=== PATIENT | female | born 1955 | race Caucasian/White ===

== ENCOUNTER → 2024-01-16 06:59 | Outpatient (REF) | payer MEDICARE, OTHER, SELFPAY ==
[2024-01-16 07:33] LABS: % Basophils 0.4 % (0-2); % Eosinophils 4.8 % (0-6); % Immature Granulocytes 0.3 % (0-0.5); % Lymphocytes 14.4 % (20.5-51.1); % Monocytes 4.8 % (1.7-9.3); % Neutrophils 75.3 % (42.2-75.2); Absolute Eosinophils 0.3 10^3/uL (0-0.7); Absolute Monocytes 0.3 10^3/uL (0.1-0.6); Absolute Neutrophils 5.1 10^3/uL (1.4-6.5); Hematocrit 37.8 % (37.0-47.0); Hemoglobin 12.4 g/dL (12.0-16.0); Mean Corp Hgb Conc. 32.8 g/dL (33.0-37.0); Mean Corpuscular Hgb 30.6 pg (27.0-31.0); Mean Corpuscular Volume 93.3 fL (81.0-99.0); Mean Platelet Volume 9.8 fL (7.4-10.4); Nucleated Red Blood Cells % 0 %; Platelet Count 237 10^3/uL (130-400); Red Blood Cell Count 4.05 10^6/uL (4.20-5.40); Red Cell Dist. Width 11.9 % (11.5-14.5); White Blood Cell Count 6.7 10^3/uL (4.8-10.8)
[2024-01-16 08:04] LABS: ALT (SGPT) 15 U/L (0-35); AST (SGOT) 22 U/L (14-36); Albumin 4.1 g/dl (3.5-5.0); Alkaline Phosphatase 91 U/L (38-126); Blood Urea Nitrogen 23 mg/dl (7-17); Calcium 9.7 mg/dl (8.4-10.2); Carbon Dioxide 31 mmol/L (22-30); Chloride 104 mmol/L (98-107); Glucose 90 mg/dl (70-99); HDL Cholesterol 63 mg/dl; LDL Cholesterol, Calculated 138 mg/dl; Potassium 4.2 mmol/L (3.5-5.1); Sodium 140 mmol/L (135-145); Total Bilirubin 0.5 mg/dl (0.2-1.3); Total Cholesterol 222 mg/dl (50-199); Total Protein 6.5 g/dl (6.3-8.2); Triglyceride 109 mg/dl (10-149); Very Low Density Lipoprotein 21 mg/dl (0-30); eGFR > 60.00
[2024-01-16 08:27] LABS: TSH Reflex To Free T4 1.24 uIU/ml (0.47-4.68)
== END ==
LOC: REG 06:59
PROVIDERS: ATTENDING PHYSICIAN Internal Medicine
DX: E66.9 Obesity, unspecified (principal); E78.2 Mixed hyperlipidemia; I10 Essential (primary) hypertension
CPT/HCPCS: 36415; 80053; 80061; 84443; 85025

== ENCOUNTER → 2024-04-16 15:17 | Outpatient (REF) | payer MEDICARE, OTHER, SELFPAY | LOC: WDC 15:17 | PROVIDERS: ATTENDING PHYSICIAN Internal Medicine | DX: Z12.31 Encounter for screening mammogram for malignant neoplasm of breast (principal) | CPT/HCPCS: 77063; 77067 ==

== ENCOUNTER → 2024-09-05 14:36 | Outpatient (REF) | payer MEDICARE, OTHER, SELFPAY | LOC: RAD 14:36 | PROVIDERS: ATTENDING PHYSICIAN Physician Assistant; FAMILY PHYSICIAN Internal Medicine | DX: I71.20 Thoracic aortic aneurysm, without rupture, unspecified (principal) | CPT/HCPCS: 71275; Q9967 ==

== ENCOUNTER 2024-09-16 09:18 | Inpatient (IN) | payer MEDICARE, OTHER, SELFPAY ==
[2024-08-29 10:43] LABS: Hemoglobin 11.5 g/dL (12.0-16.0); Mean Corp Hgb Conc. 32.9 g/dL (33.0-37.0); Mean Corpuscular Volume 88.2 fL (81.0-99.0); Mean Platelet Volume 9.9 fL (7.4-10.4); Platelet Count 276 10^3/uL (130-400); Red Blood Cell Count 3.97 10^6/uL (4.20-5.40); Red Cell Dist. Width 13.5 % (11.5-14.5); White Blood Cell Count 8.7 10^3/uL (4.8-10.8)
[2024-08-29 11:05] LABS: Glycohemoglobin (HgbA1c) 5.4 % (4.0-5.6)
[2024-08-29 11:07] LABS: ALT (SGPT) 15 U/L (0-35); AST (SGOT) 23 U/L (14-36); Alkaline Phosphatase 100 U/L (38-126); Blood Urea Nitrogen 26 mg/dl (7-17); Calcium 9.2 mg/dl (8.4-10.2); Carbon Dioxide 28 mmol/L (22-30); Chloride 104 mmol/L (98-107); Glucose 92 mg/dl (70-99); Potassium 4.1 mmol/L (3.5-5.1); Sodium 137 mmol/L (135-145); Total Bilirubin 0.4 mg/dl (0.2-1.3); Total Protein 6.5 g/dl (6.3-8.2); eGFR > 60.00
[2024-08-29 12:47] VITALS: BMI 34.8
[2024-08-29 13:31] LABS: Reticulocyte Count 1.6 % (0.4-2.8)
[2024-08-29 13:34] LABS: Iron 88 ug/dl (37-170)
[2024-08-29 13:44] LABS: Percent Saturation 26 % (20-50); Total Iron Binding Capacity 333 ug/dl (265-497)
[2024-08-29 14:10] LABS: Ferritin 19.5 ng/ml (11.1-264.0)
[2024-08-29 14:42] LABS: Folate > 20.0 ng/ml (2.76-20); Vitamin B12 529 pg/ml (239-931)
[2024-08-29 14:55] VITALS: BMI 34.8
--- NOTE | 2024-08-29 15:22 | HPS.HSE ---
Family Physician
-
Family Physician: Debbie Diehl
Chief Complaint
-
Mechanical failure of right total knee arthroplasty.
History of Present Illness
The patient is a 69-year-old female presenting today due to a mechanical failure of her prior right total knee arthroplasty. She previously underwent an uncomplicated right total knee arthroplasty in June [address] Michael Brewer.
Unfortunately, she continued to have right knee and proximal tibia pain despite her previous surgery. Her pain is noted to greatly interfere with her activities of daily living and is overall impacting her quality of life. A recent x-ray in the
office demonstrated radiolucency about the posterior medial aspect of the tibial component, consistent with aseptic loosening. She is determined to be in need of a revision of her prior right total knee arthroplasty. She denies any current
complaints today such as chest pain, shortness of breath, palpitations, nausea, vomiting, diarrhea, lightheadedness, dizziness, cough, sore throat, or fever.
Medical History
Past Medical History
Past Medical History: Reports Other
Additional Past Medical History:
1. 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 Michael Brewer.
2. Osteoarthritis, status post right total knee arthroplasty, 06/2019, and left total knee arthroplasty, 06/2020, by Dr. Michael Brewer.
3. Hypertension.
4. Hypercholesterolemia.
5. Torturous right common carotid artery.
6. Mildly dilated ascending thoracic aorta, 4.1 cm.
7. Asthma, mild and intermittent.
8. GERD.
9. Cholelithiasis, asymptomatic.
10. Hemorrhoids.
11. Nondisplaced healed fractures of the left 4th, 5th, and 8th ribs.
12. Episcleritis, treated with Prednisolone as needed.
13. Mild anemia, pre-operative anemia panel stable.
14. Osteoporosis.
15. Lactose intolerance.
16. Obesity, BMI 34.7.
Past Surgical History: Reports Other
Additional Past Surgical History:
1. Revision of left total knee arthroplasty, 12/2022, by Dr Michael Brewer.
2. Left total knee arthroplasty, 06/2020, by Dr. Michael Brewer.
3. Right total knee arthroplasty, 06/2019, by Dr. Michael Brewer.
4. Left carpal tunnel release.
5. Left wrist fracture repair and subsequent removal of hardware.
6. Total abdominal hysterectomy.
7. Right ovarian cystectomy.
8. Bilateral cataract extraction.
9. Colonoscopy x2.
Social History
Tobacco: Non-smoker
Alcohol: Occasional
Personal:
Living: Other (She lives with her in a 2 story home. She has 1 step to enter into her home. Her bedroom is upstairs. She has a powder room on the first floor. )
Family History
Family History: Not pertinent
Allergies / Home Medications
Allergy/Medication List:
Home medications:
1. Acetaminophen 1300 mg p.o. every 12 hours as needed.
2. Alendronate 70 mg p.o. weekly.
3. Aspirin 81 mg p.o. daily.
4. TUMS 200 mg p.o. daily as needed.
5. Alpha lipoic acid 600 mg p.o. daily.
6. Questran 4 gm p.o. every evening.
7. Cyclobenzaprine 10 mg p.o. daily as needed.
8. Estradiol 1 gm vaginal Mondays and .
9. Advair Diskus one inhalation twice a day.
10. Gabapentin 100 mg p.o. daily as needed.
11. Lisinopril 10 mg p.o. daily.
12. Loratadine 10 mg p.o. daily as needed.
13. Meloxicam 7.5 mg p.o. twice a day.
14. Montelukast 10 mg p.o. at noon.
15. Multivitamin 1 tablet p.o. daily.
16. Tart bell extract 1500 mg p.o. daily.
17. Turmeric two capsules p.o. daily.
18. Benefiber 1 tbsp p.o. twice a day.
19. New chapter bone calcium 3 tablet p.o. daily.
20. [place] 3/fish oil 2 capsules p.o. daily.
21. Olopatadine 1 drop ophthalmic twice a day as needed.
Allergies: Azithromycin. Celebrex. Codeine. Fenofibrate. Metronidazole. Nystatin. Statins. Sulfa. Tramadol. Tape.
Review of Systems
-
A 12 point ROS was completed and negative except as noted: Yes
Physical Exam
Vital Signs
Blood pressure 144/88. Heart rate 74. Respirations 18. Pulse ox 97% on room air.
Height 5 feet, 4 inches. Weight 91.8 kg. BMI 34.7.
Physical Exam
General: Well Developed, Well Nourished and No Apparent Distress
HEENT: NormoCephalic, Moist mucous membranes, Atraumatic and PERRLA
Respiratory: Clear
Cardiac: Regular Rhythm
GI: Soft, Non Tender, Non Distended and Other (Obese. )
Musculoskeletal: Other (Right knee: range of motion 0-120. Surgical incision well healed. Minimal effusion. Tenderness over the proximal medial tibia. No significant instability. )
Skin: Warm and Dry
Neuro: AO x 3 and Nonfocal/grossly intact
Laboratory Results
-
08/29/24 10:12
08/29/24 10:12
Laboratory Results
Total Bilirubin 0.4 mg/dl (0.2-1.3) 08/29/24 10:12
AST 23 U/L (14-36) 08/29/24 10:12
ALT 15 U/L (0-35) 08/29/24 10:12
Alkaline Phosphatase 100 U/L (38-126) 02/06/25 10:12
Hemoglobin A1c 5.4. Reticulocyte count 1.6. Iron 88. TIBC 333. Ferritin 19.5. Vitamin B12 529. Folate >20. Type and screen B positive. MRSA nasal screen negative.
EKG 08/29/2024: Normal sinus rhythm.
Chest CTA 09/05/2024: Mild aneurysmal dilatation of the ascending thoracic aorta at 4.1 cm as compared to 3.8 cm on prior study September 09, 2022. Small volume coronary artery calcifications.
Impression/Plan
-
CLEARANCES:
1. Primary medical, Dr. Debbie Diehl, cleared.
Primary medical phone number: [phone].
2. Dental waived.
IMPRESSION/PLAN:
1. Mechanical failure of right total knee arthroplasty: The patient is in need of a revision of her right total knee arthroplasty with Dr. Michael Brewer on 09/16/2024. The benefits and risks of the procedure have been explained to the patient. The
patient understands these risks and wishes to proceed.
2. DVT prophylaxis: Aspirin with bilateral venous compression devices.
3. Mild anemia: Her pre-operative anemia panel was within normal limits and her renal function is stable. She denies any hematemesis, hemoptysis, epistaxis, or dark colored stools. We will monitor her hemoglobin closely during admission.
4. Mildly dilated ascending thoracic aorta, 4.1 cm: Recent chest CTA result discussed with Dr. Sid Major of cardiothoracic surgery. Fortunately, this result should not be a problem for surgery in his opinion. She was advised to follow up
routinely with a operations label clerk regarding this. This can be done after her revision. She is interested in following Dr. Valeria Pereira as that is who her sees.
5. Pain management: We will utilize Dilaudid as needed for moderate-severe post-operative pain. We will also include Acetaminophen, Gabapentin, a Prednisone taper, and Cyclobenzaprine as needed for muscle spasms. She tolerated this medication
regimen well after her prior revision. She also requests Toradol to be used during admission.
6. Early discharge: Given the patient's stable comorbidities and good support system, she would be an ideal candidate for early discharge. She plans on doing outpatient PT here at [facility] on 09/18/2024.
Patient's home phone number: [phone].
Patient's cell phone number: [phone].
Patient's contact (Favian Simms - Spouse): [phone].
[2024-09-16] VITALS (19 sets, daily range): BP systolic 115–176; BP diastolic 70–100; PULSE 73; O2SAT 97; BMI 34.8
[2024-09-16] MEDS: TYLENOL 650 MG PO ×3 (09:59→20:58)
[2024-09-16] MEDS: MOBIC 15 MG PO (10:00)
[2024-09-16] MEDS: NORMOSOL-R/PLASMALYTE-A 1000 IV ×2 (10:00→17:36)
--- NOTE | 2024-09-16 14:15 | W.PN.UPDATE ---
Update Note
Progress Note Update
Mechanical failure of R TKA s/p Revision of R TKA w/ Dr Brewer 09/16/24
- s/p Revision of L TKA w/ Dr Brewer 12/2022
DVT prophylaxis - ASA, b/l venous foot pumps
HTN - + parameters - monitor BP
Mildly dilated ascending thoracic aorta, 4.1 cm - ensure adequate BP control
Asthma, mild and intermittent - monitor O2
- IS
- Continue inhaler
GERD - add Pepcid HS
Mild anemia, pre-operative anemia panel stable - non-invasive hgb in AM
OA, status post R TKA, 06/2019, and L TKA 06/2020, by Dr Brewer
Hypercholesterolemia
Torturous right common carotid artery
Cholelithiasis, asymptomatic
Hemorrhoids
Nondisplaced healed fractures of the left 4th, 5th, and 8th ribs
Episcleritis, treated with Prednisolone as needed
Osteoporosis
Lactose intolerance
Obesity, BMI 34.7
The patient is an appropriate candidate for early discharge
[2024-09-16] MEDS: ZOFRAN 4 MG IV ×2 (16:00→21:07)
[2024-09-16] MEDS: NEURONTIN 200 MG PO ×2 (17:27→21:17)
[2024-09-16] MEDS: SINGULAIR 10 MG PO (17:27)
[2024-09-16] MEDS: ASPIRIN 325 MG PO (17:28)
[2024-09-16] MEDS: QUESTRAN 4 GRAM PO (17:31)
[2024-09-16] MEDS: ADVAIR HFA 115/21 MCG INHALER 2 PUFF INH (19:30)
[2024-09-16] MEDS: ANCEF 5 IV (20:54)
[2024-09-16] MEDS: BACTROBAN 2% OINTMENT 1 APPLIC NASAL (20:55)
[2024-09-16] MEDS: FLEXERIL 10 MG PO (21:17)
[2024-09-16] MEDS: PEPCID 20 MG PO (21:17)
[2024-09-16] MEDS: SENOKOT 17.2 MG PO (22:11)
[2024-09-16] MEDS: COLACE 100 MG PO (22:11)
[2024-09-17] MEDS: TYLENOL PO (01:11)
[2024-09-17] MEDS: ANCEF 5 IV (04:53)
[2024-09-17] MEDS: TYLENOL 650 MG PO ×2 (04:53→07:56)
[2024-09-17 05:16] VITALS: BP 112/65
[2024-09-17 07:10] VITALS: BP 108/53
[2024-09-17] MEDS: ADVAIR HFA 115/21 MCG INHALER 2 PUFF INH (07:36)
[2024-09-17] MEDS: TORADOL 15 MG IV (07:54)
[2024-09-17] MEDS: NEURONTIN 200 MG PO (07:55)
[2024-09-17] MEDS: ASPIRIN 325 MG PO (07:56)
[2024-09-17] MEDS: DELTASONE 40 MG PO (07:56)
[2024-09-17] MEDS: SENOKOT 17.2 MG PO (07:56)
[2024-09-17] MEDS: BACTROBAN 2% OINTMENT 1 APPLIC NASAL (07:56)
[2024-09-17] MEDS: COLACE 100 MG PO (07:56)
--- NOTE | 2024-09-17 08:47 | W.PN.ORTHO ---
Today's Communication / Plan
-
Await OT recs. Pt did well w/ PT this AM.
D/c later today if remaining clinically stable.
Assessment
.
Distal Motor Intact: Yes
Dressing:
Scant areas of old incisional bleeding. Dressing otherwise C/D/I.
Assessment:
Mechanical failure of R TKA s/p Revision of R TKA w/ Dr Brewer 09/16/24
- s/p Revision of L TKA w/ Dr Brewer 12/2022
DVT prophylaxis - ASA, b/l venous foot pumps
R knee pain - continue Tylenol ATC, Prednisone taper, Gabapentin, and Cyclobenzaprine BIDPRN
- Will resume Meloxicam once off steroid taper
- Did advise opioid use for mod-severe pain; pt hesitant but agreeable to Oxycodone upon d/c prn
- Should rash occur w/ Oxycodone, she will be on taper and can use Benadryl prn for itch
Post-op nausea - improved w/ Zofran prn - will Rx upon d/c
HTN - + parameters - BPs stable
Mildly dilated ascending thoracic aorta, 4.1 cm - BPs stable overall
Asthma, mild and intermittent - O2 stable on RA
- IS
- Continue inhaler
GERD - added Pepcid HS
Mild anemia, pre-operative anemia panel stable - non-invasive hgb stable at 13.1 POD 1
OA, status post R TKA, 06/2019, and L TKA 06/2020, by Dr Brewer
Hypercholesterolemia
Torturous right common carotid artery
Cholelithiasis, asymptomatic
Hemorrhoids
Nondisplaced healed fractures of the left 4th, 5th, and 8th ribs
Episcleritis, treated with Prednisolone as needed
Osteoporosis
Lactose intolerance
Obesity, BMI 34.7
The patient is an appropriate candidate for early discharge
Plan
.
Surgery / Date: Revision of R TKA w/ Dr Brewer 09/16/24
DVT Prophylaxis: Aspirin
Activity:
Out of bed.
PT/OT
Discharge Plan: Home w/ Outpatient PT
Subjective
.
.:
Patient examined resting in bed.
R knee pain controlled at rest. Increased w/ PT but pt hesitant to take opioids.
Nausea last night, improved w/ Zofran prn.
Denies any other new significant complaints.
Eager for potential d/c today.
Vital Signs and Labs
.
Vital Signs and Labs:
Lab Results
08/29/24 10:12
08/29/24 10:12
Temp Pulse Resp BP Pulse Ox
97.7 F 72 18 108/53 95
09/17/24 07:10 09/17/24 07:10 09/17/24 07:10 09/17/24 07:56 09/17/24 07:10
Physical Exam
-
HEENT: No pallor, cyanosis, or jaundice. Throat clear.
NECK: Supple. No JVD.
RESPIRATORY: Lungs clear to auscultation.
CVS: S1, S2 normal. RRR.�
ABDOMEN: Soft, non-tender. No distension. Obese.
EXTREMITIES: Mild post-surgical R knee edema. Strength equal, no calf pain with palpation/dorsiflexion. Calves soft.
PIERCING ARTIST: AOx3. No focal deficits. bicycle fitter grossly intact
[2024-09-17 08:50] VITALS: BP 113/64; BP 115/66; PULSE 71; O2SAT 98
--- NOTE | 2024-09-17 09:10 | W.DS.TRANS ---
DC Summary - Take Off Worker
-
Discharge Instructions:
Sleep Apnea Risk Low
Discharge Diagnosis/Procedures Mechanical failure of R TKA s/p Revision of R
TKA w/ Dr Brewer 09/16/24
Diet Regular
Activity As tolerated,With Walker
Driving Restrictions Not until seen by your Dr
Bathing Restrictions OK to Shower
Other Services PT
Wound Care Dressing to be removed 1 week post-surgery.
Melly to be removed at 2 week follow-up with
surgeon's office.
Instructions:
Stand-Alone Forms: Total Hip/Knee Replacement D/C
Changes to Home Medications: Yes
Discharge Medications:
DC Medications w/original date entered in [facility]
fluticasone 250 mcg-salmeterol 50 mcg/dose blistr powdr for inhalation (Advair Diskus) 1 inh inhalation BID 12/07/22
sour almaraz extract 1,000 mg capsule (Tart Almaraz Extract) 1,500 mg PO DAILY Supplement 12/07/22
alendronate 70 mg tablet 70 mg PO QWEEK osteoporosis 12/16/22
calcium carbonate (Tums) 200 mg PO DAILYPRN PRN indigestion 12/16/22
cholestyramine (with sugar) 4 gram oral powder (Questran) 4 g PO QPM High Cholesterol 12/16/22
estradiol 0.01% (0.1 mg/gram) vaginal cream 1 g vaginal MOTH Hormonal Agent 12/16/22
loratadine 10 mg tablet 10 mg PO DAILY PRN allergies 12/16/22
olopatadine 0.1 % eye drops 1 drp ophthalmic (eye) BIDPRN PRN eyes 12/16/22
New Chapter Bone Calcium 3 tab PO DAILY 08/26/24
Turmeric Pea Lizbeth 2 cap PO DAILY Supplement 08/26/24
alpha lipoic acid 600 mg tablet 600 mg PO DAILY 08/26/24
guar gum 1 tbsp PO BID 08/26/24
montelukast 10 mg tablet 10 mg PO NOON ASTHMA 08/26/24
alvsbkfi-audj-bqkf 8 mg-folic 400 mcg-K 50 mcg-lutein 300 mcg tablet (Centrum Silver Women) 1 tab PO DAILY Supplement 08/26/24
zqfoo-4-pxg-fish oil 2 cap PO DAILY 08/26/24
mupirocin 2 % topical ointment 1 applic intranasal BID #1 tube 08/29/24
acetaminophen 650 mg tablet,extended release 1,300 mg (2 x 650 mg) PO Q8H #1 tab 09/17/24
aspirin 325 mg tablet 325 mg PO DAILY #30 tabs 09/17/24
cyclobenzaprine 10 mg tablet 10 mg PO BIDPRN PRN muscle spasms #20 tabs 09/17/24
diphenhydramine HCl 25 mg capsule (Benadryl) 25 mg PO TID PRN itching #10 caps 09/17/24
docusate sodium 100 mg capsule 100 mg PO BID #30 caps 09/17/24
famotidine 20 mg tablet 20 mg PO HS #30 tabs 09/17/24
gabapentin 100 mg capsule 200 mg (2 x 100 mg) PO TID #42 caps 09/17/24
lisinopril 10 mg tablet 10 mg PO DAILY Blood Pressure #1 tab 09/17/24
meloxicam 7.5 mg tablet 7.5 mg PO BID #30 tabs 09/17/24
ondansetron 4 mg disintegrating tablet 4 mg PO Q6H PRN nausea and vomiting #30 tabs 09/17/24
oxycodone 5 mg tablet 5 - 10 mg (1 - 2 x 5 mg) PO Q6H PRN moderate-severe pain #15 tabs 09/17/24
prednisone 10 mg tablet 40 mg (4 x 10 mg) PO TAPER #20 tabs 09/17/24
sennosides 8.6 mg tablet (Randee-karen) 17.2 mg (2 x 8.6 mg) PO BID #30 tabs 09/17/24
Home Medication Changes
acetaminophen 650 mg tablet,extended release 1,300 mg (2 x 650 mg) PO Q8H #1 tab 09/17/24
aspirin 325 mg tablet 325 mg PO DAILY #30 tabs 09/17/24
cyclobenzaprine 10 mg tablet 10 mg PO BIDPRN PRN muscle spasms #20 tabs 09/17/24
diphenhydramine HCl 25 mg capsule (Benadryl) 25 mg PO TID PRN itching #10 caps 09/17/24
docusate sodium 100 mg capsule 100 mg PO BID #30 caps 09/17/24
famotidine 20 mg tablet 20 mg PO HS #30 tabs 09/17/24
gabapentin 100 mg capsule 200 mg (2 x 100 mg) PO TID #42 caps 09/17/24
meloxicam 7.5 mg tablet 7.5 mg PO BID #30 tabs 09/17/24 - to be started after Prednisone
ondansetron 4 mg disintegrating tablet 4 mg PO Q6H PRN nausea and vomiting #30 tabs 09/17/24
oxycodone 5 mg tablet 5 - 10 mg (1 - 2 x 5 mg) PO Q6H PRN moderate-severe pain #15 tabs 09/17/24
prednisone 10 mg tablet 40 mg (4 x 10 mg) PO TAPER #20 tabs 09/17/24
sennosides 8.6 mg tablet (Randee-karen) 17.2 mg (2 x 8.6 mg) PO BID #30 tabs 09/17/24
Pending Results: No
[2024-09-17 09:20] VITALS: BP 114/66; PULSE 74; O2SAT 99
--- NOTE | 2024-09-17 09:29 | CM ---
Met with pt at bedside
Pt reports she lives with her in a 2 story home; 1 step to enter, FF set-up
Independent at baseline, ambulating with single point cane, drives
DME - single point cane, rolling walker, raised toilet seat
SNF - denies past hx
HH - [facility] in past
Has ride at discharge
PCP - Debbie Diehl
Pharm - [facility]
Has appt scheduled for outpatient PT tomorrow 09/18 at [facility] ambulatory center
Has transport
Given IMM
Plan - home with outpatient PT
== END 2024-09-17 10:38 | disposition home or self-care (01) | DRG 468 ==
LOC: 2 SOUTH 09:18
PROVIDERS: ADMITTING PHYSICIAN Specialist; FAMILY PHYSICIAN Internal Medicine
PROC: 0SRC0J9 Replacement of Right Knee Joint with Synthetic Substitute, Cemented, Open Approach (ICD-10-PCS; 2024-09-16)
PROC: 0SPC0JZ Removal of Synthetic Substitute from Right Knee Joint, Open Approach (ICD-10-PCS; 2024-09-16)
DX: T84.032A Mechanical loosening of internal right knee prosthetic joint, initial encounter (principal); I10 Essential (primary) hypertension; E78.00 Pure hypercholesterolemia, unspecified; I77.810 Thoracic aortic ectasia; J45.909 Unspecified asthma, uncomplicated; K21.9 Gastro-esophageal reflux disease without esophagitis; D64.9 Anemia, unspecified; Y79.2 Prosthetic and other implants, materials and accessory orthopedic devices associated with adverse incidents; K80.20 Calculus of gallbladder without cholecystitis without obstruction; K64.9 Unspecified hemorrhoids; H15.109 Unspecified episcleritis, unspecified eye; M81.0 Age-related osteoporosis without current pathological fracture; E73.9 Lactose intolerance, unspecified; Z68.34 Body mass index [BMI] 34.0-34.9, adult; E66.01 Morbid (severe) obesity due to excess calories; Z96.652 Presence of left artificial knee joint; Z98.41 Cataract extraction status, right eye; Z98.42 Cataract extraction status, left eye; Z90.710 Acquired absence of both cervix and uterus; Z88.2 Allergy status to sulfonamides; M17.11 Unilateral primary osteoarthritis, right knee
CPT/HCPCS: 36415; 73560; 80053; 82607; 82728; 82746; 83036; 83540; 83550; 85027; 85045; 86850; 86900; 86901; 87070; 87147; 93005; 94640; 97110; 97116; 97162; 97166; 97530; 97535

== ENCOUNTER 2024-09-20 13:48 | Outpatient (RCR) | payer MEDICARE, OTHER, SELFPAY | END 2024-09-20 23:59 | disposition home or self-care (01) | LOC: RPT 13:48 | PROVIDERS: ATTENDING PHYSICIAN Specialist; FAMILY PHYSICIAN Internal Medicine | DX: Z47.1 Aftercare following joint replacement surgery (principal); T84.012D Broken internal right knee prosthesis, subsequent encounter (principal); X58.XXXD Exposure to other specified factors, subsequent encounter; Z73.6 Limitation of activities due to disability; Z96.651 Presence of right artificial knee joint | CPT/HCPCS: 97010; 97110; 97161 ==

== ENCOUNTER 2024-10-17 13:50 | Outpatient (RCR) | payer MEDICARE, OTHER, SELFPAY | END 2024-10-17 23:59 | disposition home or self-care (01) | LOC: RPT 13:50 | PROVIDERS: ATTENDING PHYSICIAN Specialist; FAMILY PHYSICIAN Internal Medicine | DX: Z47.1 Aftercare following joint replacement surgery (principal); T84.012D Broken internal right knee prosthesis, subsequent encounter (principal); Z96.651 Presence of right artificial knee joint; X58.XXXD Exposure to other specified factors, subsequent encounter | CPT/HCPCS: 97010; 97110; 97140; 97530 ==

== ENCOUNTER 2024-11-20 13:58 | Outpatient (RCR) | payer MEDICARE, OTHER, SELFPAY | END 2024-11-20 23:59 | disposition home or self-care (01) | LOC: RPT 13:58 | PROVIDERS: ATTENDING PHYSICIAN Specialist; FAMILY PHYSICIAN Internal Medicine | DX: Z47.1 Aftercare following joint replacement surgery (principal); Z96.651 Presence of right artificial knee joint; Z73.6 Limitation of activities due to disability; R26.2 Difficulty in walking, not elsewhere classified; T84.012D Broken internal right knee prosthesis, subsequent encounter; M62.81 Muscle weakness (generalized); X58.XXXD Exposure to other specified factors, subsequent encounter; R26.89 Other abnormalities of gait and mobility; M54.9 Dorsalgia, unspecified | CPT/HCPCS: 97110; 97112; 97116; 97140; 97530 ==

== ENCOUNTER 2024-12-19 13:52 | Outpatient (RCR) | payer MEDICARE, OTHER, SELFPAY | END 2024-12-20 05:51 | disposition home or self-care (01) | LOC: RPT 13:52 | PROVIDERS: ATTENDING PHYSICIAN Specialist; FAMILY PHYSICIAN Internal Medicine | DX: Z47.1 Aftercare following joint replacement surgery (principal); Z96.651 Presence of right artificial knee joint; T84.012D Broken internal right knee prosthesis, subsequent encounter; M62.81 Muscle weakness (generalized); Z73.6 Limitation of activities due to disability; R26.89 Other abnormalities of gait and mobility; M54.9 Dorsalgia, unspecified; X58.XXXD Exposure to other specified factors, subsequent encounter; R26.2 Difficulty in walking, not elsewhere classified | CPT/HCPCS: 97110; 97112; 97140; 97530 ==

== ENCOUNTER → 2024-12-31 12:55 | Outpatient (REF) | payer MEDICARE, OTHER, SELFPAY ==
[2025-01-02 13:43] LABS: Rubeola (Measles) IgG Positive
== END ==
LOC: REG 12:55
PROVIDERS: ATTENDING PHYSICIAN Internal Medicine
DX: Z01.84 Encounter for antibody response examination (principal)
CPT/HCPCS: 36415; 86765

== ENCOUNTER → 2025-01-14 06:53 | Outpatient (REF) | payer MEDICARE, OTHER, SELFPAY ==
[2025-01-14 07:55] LABS: % Basophils 0.4 % (0-2); % Eosinophils 3.9 % (0-6); % Immature Granulocytes 0.5 % (0-0.5); % Lymphocytes 14.8 % (20.5-51.1); % Monocytes 4.7 % (1.7-9.3); % Neutrophils 75.7 % (42.2-75.2); Absolute Eosinophils 0.3 10^3/uL (0-0.7); Absolute Lymphocytes 1.2 10^3/uL (1.2-3.4); Absolute Monocytes 0.4 10^3/uL (0.1-0.6); Absolute Neutrophils 6.1 10^3/uL (1.4-6.5); Hematocrit 37.2 % (37.0-47.0); Hemoglobin 12.4 g/dL (12.0-16.0); Mean Corp Hgb Conc. 33.3 g/dL (33.0-37.0); Mean Corpuscular Hgb 29.4 pg (27.0-31.0); Mean Corpuscular Volume 88.2 fL (81.0-99.0); Mean Platelet Volume 9.9 fL (7.4-10.4); Nucleated Red Blood Cells % 0 %; Platelet Count 284 10^3/uL (130-400); Red Blood Cell Count 4.22 10^6/uL (4.20-5.40); Red Cell Dist. Width 13.3 % (11.5-14.5); White Blood Cell Count 8.1 10^3/uL (4.8-10.8)
[2025-01-14 08:52] LABS: ALT (SGPT) 18 U/L (0-35); AST (SGOT) 22 U/L (14-36); Albumin 4.4 g/dl (3.5-5.0); Alkaline Phosphatase 97 U/L (38-126); Blood Urea Nitrogen 18 mg/dl (7-17); Calcium 10.1 mg/dl (8.4-10.2); Carbon Dioxide 25 mmol/L (22-30); Chloride 110 mmol/L (98-107); Glucose 95 mg/dl (70-99); HDL Cholesterol 55 mg/dl; LDL Cholesterol, Calculated 127 mg/dl; Potassium 4.8 mmol/L (3.5-5.1); Sodium 143 mmol/L (135-145); Total Bilirubin 0.6 mg/dl (0.2-1.3); Total Cholesterol 221 mg/dl (50-199); Total Protein 6.9 g/dl (6.3-8.2); Triglyceride 196 mg/dl (10-149); Very Low Density Lipoprotein 39 mg/dl (0-30); eGFR > 60.00
[2025-01-14 09:13] LABS: TSH Reflex To Free T4 0.97 uIU/ml (0.47-4.68)
[2025-01-16 13:28] LABS: Rubeola (Measles) IgG Positive
== END ==
LOC: REG 06:53
PROVIDERS: ATTENDING PHYSICIAN Internal Medicine; FAMILY PHYSICIAN Internal Medicine Cardiovascular Disease
DX: E78.2 Mixed hyperlipidemia (principal); M81.0 Age-related osteoporosis without current pathological fracture; I10 Essential (primary) hypertension; Z01.84 Encounter for antibody response examination
CPT/HCPCS: 36415; 80053; 80061; 84443; 85025; 86765

== ENCOUNTER → 2025-02-17 13:26 | Outpatient (REF) | payer MEDICARE, OTHER, SELFPAY | LOC: RCS 13:26 | PROVIDERS: ATTENDING PHYSICIAN Internal Medicine Cardiovascular Disease; FAMILY PHYSICIAN Internal Medicine | DX: I71.21 Aneurysm of the ascending aorta, without rupture (principal) | CPT/HCPCS: 76770; 93306 ==

== ENCOUNTER → 2025-06-26 07:23 | Outpatient (REF) | payer MEDICARE, OTHER, SELFPAY ==
[2025-06-26 09:26] LABS: HDL Cholesterol 59 mg/dl; LDL Cholesterol, Calculated 42 mg/dl; Very Low Density Lipoprotein 20 mg/dl (0-30)
== END ==
LOC: REG 07:23
PROVIDERS: ATTENDING PHYSICIAN Internal Medicine Cardiovascular Disease; FAMILY PHYSICIAN Internal Medicine
DX: E78.5 Hyperlipidemia, unspecified (principal)
CPT/HCPCS: 36415; 80061

== ENCOUNTER → 2025-07-23 13:05 | Outpatient (REF) | payer MEDICARE, OTHER, SELFPAY | LOC: WDC 13:05 | PROVIDERS: ATTENDING PHYSICIAN Internal Medicine | DX: Z00.00 Encounter for general adult medical examination without abnormal findings (principal); I10 Essential (primary) hypertension; E78.00 Pure hypercholesterolemia, unspecified; M81.0 Age-related osteoporosis without current pathological fracture; Z12.31 Encounter for screening mammogram for malignant neoplasm of breast | CPT/HCPCS: 77063; 77067 ==